=== PATIENT | female | born 1995 | race Caucasian/White ===

== ENCOUNTER 2020-09-24 21:25 | Emergency (ER) | payer OTHER ==
[~2020-09-24] VITALS: Ht 167.6 cm; Wt 58.5 kg
--- NOTE | 2020-09-24 22:18 | NUR ---
Dr. Prince on bedside for MSE.
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
[2020-09-24] MEDS ORDERED: IBUPROFEN 800 MG TABLET PO ONE (22:30)
[2020-09-24] MEDS ORDERED: NEOMY/BACITRA/POLYMYXIN B OINT UD PACKET TP ONE ×2 (22:30→22:31)
[2020-09-24] MEDS ORDERED: IBUPROFEN 800 MG TABLET ONE (22:32)
[2020-09-24] MEDS ORDERED: IBUP-1955 PO (22:34)
[2020-09-24] MEDS ORDERED: DOCU250C14 PO (22:34)
[2020-09-24] MEDS ORDERED: HYDR-4209 PO (22:34)
--- NOTE | 2020-09-24 22:40 | NUR ---
Patient discharged to home in stable condition. Written and verbal after care instructions given. Patient verbalizes understanding of instructions. Stressed follow up or return to ER for worsening s/s. Patient ambulated fr the ER with steady gait. All belongings with patient.
[2020-09-24 22:45] VITALS: BP 102/62
== END 2020-09-24 22:40 | disposition home or self-care (01) ==
LOC: ER 21:32
DX: S80.811A Abrasion, right lower leg, initial encounter (principal); V43.52XA Car driver injured in collision with other type car in traffic accident, initial encounter; Y92.414 Local residential or business street as the place of occurrence of the external cause; H93.11 Tinnitus, right ear
CPT/HCPCS: A4663